=== PATIENT | male | born 1960 | race Caucasian/White ===

== ENCOUNTER → 2020-03-10 | Day surgery (SDC) | payer BC, OTHER ==
[~2020-03-10] MED LIST: Bupivacaine 0.5% 50 ML MDV ONE; Cephalexin 250 MG Cap PO ONE; Dexamethasone 4 MG/ML SDV ONE; Glycopyrrolate 0.2 MG/ML 5 ML MDV ONE; Hydrogen Peroxide 3% Top Soln 240 ML Bottle ONE; Lidocaine 1% with EPINEPHrine 1:100,000 50 ML MDV INFILT SCH; Lidocaine 1% with EPINEPHrine 1:100,000 50 ML MDV ONE; Neostigmine Methylsulfate 1 MG/ML 5 ML Syringe ONE; Ondansetron 4 MG/2 ML SDV ONE; Propofol 200 MG/20 ML SDV ONE; Rocuronium 50 MG/5 ML Vial ONE; Sodium Chloride 0.9% 10 ML ONE; Sodium Chloride 0.9% 10 ML Syringe FLUSH PRN; Succinylcholine 200 MG/10 ML MDV ONE; ceFAZolin 1 GM Vial ONE; ceFAZolin 2 GM in Premix Bag 1 BAG IV ONE; fentaNYL 100 MCG/2 ML SDV IVPUSH ONE; fentaNYL 250 MCG/5 ML SDV ONE
--- NOTE | 2020-03-10 20:19 | EDM.PDOC ---
ED HPI GENERAL MEDICAL PROBLEM - General Chief Complaint: Laceration Stated Complaint: CUT TO LT HAND Time Seen by Provider: 03/10/20 20:20 Source of Information: Reports: Patient History Limitations: Reports: No Limitations - History of Present Illness INITIAL COMMENTS - FREE TEXT/NARRATIVE: Patient presents for evaluation of a laceration to the palm of the left hand. He was using a small paring knife at home tonight and inadvertently cut the palm of the hand. The wound was pulsating blood and his home applied dressing and related clothing was easily saturated with blood. He has full use of fingers in terms of flexion and extension and can feel everything in his fingers. I was requested to see the patient urgently on arrival because of the extent of his bleeding. His last tetanus immunization was 4 years ago. He has a past history of coronary artery disease with several stents 4 years ago, long-term back pain with daily use of oxycodone. He had 2 epidural steroid injections in February of this year. He is also on medications for cholesterol. Onset: Today, Sudden Location: Reports: Upper Extremity, Left Quality: Reports: Stabbing, Throbbing Severity: Moderate Improves with: Reports: None Worsens with: Reports: None left palm Pain Score (Numeric/FACES): 2 - Related Data Allergies Allergy/AdvReac Type Severity Reaction Status Date / Time codeine Allergy Hives Verified 03/10/20 19:58 Home Meds: Home Meds Aspirin [Ecotrin EC] 81 mg PO DAILY 03/10/20 [History] Ezetimibe 1 tab PO DAILY 03/10/20 [History] Rosuvastatin [Crestor] 20 mg PO BEDTIME 03/10/20 [History] oxyCODONE HCl/Acetaminophen [Oxycodone-Acetaminophen 10-300] 1 tab PO TID PRN 03/10/20 [History] Past Medical History Cardiovascular History: Reports: High Cholesterol Endocrine/Metabolic History: Reports: Other (See Below) Other Endocrine/Metabolic History: testosterone replacement every 2 weeks - Past Surgical History Cardiovascular Surgical History: Reports: Coronary Artery Stent Neurological Surgical History: Reports: Lumbar Spine, Spinal Fusion Musculoskeletal Surgical History: Reports: Hip Replacement Social & Family History - Tobacco Use Smoking Status *Q: Never Smoker - Caffeine Use Caffeine Use: Reports: Coffee - Alcohol Use Days Per Week of Alcohol Use: 4 Number of Drinks Per Day: 2 Total Drinks Per Week: 8 - Recreational Drug Use Recreational Drug Use: No ED ROS GENERAL - Review of Systems Review Of Systems: Comprehensive ROS is negative, except as noted in HPI. ED EXAM, SKIN/RASH Exam: See Below Text/Narrative:: Anxious appearing adult male with bloodsoaked bandages. The bandage was unwrapped and there was a roughly 1.5 or 2 cm laceration in the center of the palm of the left hand that shows weakly pulsatile flow. The hand was bandaged again and the arm elevated but in a matter of time, the bandages were also soaked with blood. Exam Limited By: No Limitations General Appearance: Alert, Anxious, Moderate Distress Cardiovascular: Regular Rate, Rhythm, Tachycardia Extremities: Other (Left palm laceration as described.) Skin: Wound/Incision (See wound description in previous portion of note.) Course - Vital Signs Last Recorded V/S: Last Vital Signs Temp 35.5 C L 03/11/20 00:30 Pulse 76 03/11/20 00:30 Resp 16 03/11/20 00:30 BP 116/75 03/11/20 00:30 Pulse Ox 95 03/11/20 00:30 - Orders/Labs/Meds Orders: Active Orders 24 hr Category Date Time Status Lidocaine 1% w/EPINEPHrine [Xylocaine 1% with Med 03/10/20 20:00 Active EPINEPHrine 1:100,000] 5 ml INFILT ASDIRECTED Sodium Chloride 0.9% [Saline Flush] Med 03/10/20 20:18 Active 10 ml FLUSH ASDIRECTED PRN Saline Lock Insert [OM.PC] Routine Oth 03/10/20 20:18 Ordered Medication Orders Lidocaine/Epinephrine (Xylocaine 1% With Epinephrine 1:100,000) 5 ml INFILT ASDIRECTED STAS Last Admin: 03/11/20 01:07 Dose: Not Given Documented by: ABBE Sodium Chloride (Saline Flush) 10 ml FLUSH ASDIRECTED PRN PRN Reason: Keep Vein Open Meds: Medications Generic Name Dose Route Start Last Admin Trade Name Freq PRN Reason Stop Dose Admin Lidocaine/Epinephrine 5 ml 03/10/20 20:00 03/11/20 01:07 Xylocaine 1% With Epinephrine 1:100,000 INFILT Not Given ASDIRECTED SATS Sodium Chloride 10 ml 03/10/20 20:18 Saline Flush FLUSH ASDIRECTED PRN Keep Vein Open Discontinued Medications Generic Name Dose Route Start Last Admin Trade Name Ivett PRN Reason Stop Dose Admin Bupivacaine HCl Confirm 03/10/20 20:56 Marcaine 0.5% Administered 03/10/20 20:57 Dose 50 ml .ROUTE .STK-MED ONE Cefazolin Sodium Confirm 03/10/20 21:26 03/10/20 21:47 Ancef Administered 03/10/20 21:27 1 gm Dose Administration 1 gm .ROUTE .STK-MED ONE Cephalexin 500 mg 03/11/20 00:13 03/11/20 00:40 Keflex PO 03/11/20 00:14 500 mg ONETIME ONE Administration Cephalexin 500 mg 03/11/20 00:14 03/11/20 00:40 Keflex PO 03/11/20 00:15 500 mg ONETIME ONE Administration Dexamethasone Confirm 03/10/20 21:09 Dexamethasone Administered 03/10/20 21:10 Dose 4 mg .ROUTE .STK-MED ONE Fentanyl Confirm 03/10/20 21:08 Sublimaze Administered 03/10/20 21:09 Dose 250 mcg .ROUTE .STK-MED ONE Fentanyl 50 mcg 03/10/20 22:04 03/10/20 22:15 Sublimaze IVPUSH 03/10/20 22:05 50 mcg ONETIME ONE Administration Glycopyrrolate Confirm 03/10/20 21:09 Robinul Administered 03/10/20 21:10 Dose 1 mg .ROUTE .STK-MED ONE Hydrogen Peroxide Confirm 03/10/20 21:37 03/10/20 21:49 Proxacol 3% Administered 03/10/20 21:38 240 ml Dose Administration 240 ml .ROUTE .STK-MED ONE Cefazolin Sodium/Dextrose 2 gm 50 mls @ 100 mls/hr 03/10/20 20:18 03/10/20 20:36 / Premix IV 03/10/20 20:47 100 mls/hr ONETIME ONE Administration Sodium Chloride Confirm 03/10/20 21:26 Normal Saline Administered 03/10/20 21:27 Dose 10 mls @ as directed .ROUTE .STK-MED ONE Lidocaine/Epinephrine Confirm 03/10/20 20:56 Xylocaine 1% With Epinephrine 1:100,000 Administered 03/10/20 20:57 Dose 50 ml .ROUTE .STK-MED ONE Neostigmine Methylsulfate Confirm 03/10/20 21:09 Neostigmine Administered 03/10/20 21:10 Dose 5 mg .ROUTE .STK-MED ONE Ondansetron HCl Confirm 03/10/20 21:09 Zofran Administered 03/10/20 21:10 Dose 4 mg .ROUTE .STK-MED ONE Propofol Confirm 03/10/20 21:09 Diprivan 20 Ml Administered 03/10/20 21:10 Dose 200 mg .ROUTE .STK-MED ONE Rocuronium [place] Confirm 03/10/20 21:09 Zemuron Administered 03/10/20 21:10 Dose 50 mg .ROUTE .STK-MED ONE Succinylcholine Chloride Confirm 03/10/20 21:09 Quelicin Administered 03/10/20 21:10 Dose 200 mg .ROUTE .STK-MED ONE - Re-Assessments/Exams Free Text/Narrative Re-Assessment/Exam: 03/10/20 21:08 I reviewed his case with Dr. 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 Patient will be given cefazolin 2 g IV as a preoperative dose. Plan is to take him for IV sedation and local repair of the damaged vessel. There are no contraindications to surgery recognized at this time. Departure - Departure Time of Disposition: 01:11 Disposition: Home, Self-Care 01 Clinical Impression: Hand laceration Qualifiers: Encounter type: initial encounter Foreign body presence: without foreign body L aterality: left Qualified Code(s): S61.412A - Laceration without foreign body of left hand, initial encounter - Discharge Information Sepsis Event Note (ED) - Evaluation Sepsis Screening Result: No Definite Risk - Focused Exam Vital Signs: Vital Signs Temp Pulse Resp BP Pulse Ox 03/11/20 00:30 35.5 C L 76 16 116/75 95 03/11/20 00:00 35.5 C L 91 16 103/74 94 L 03/10/20 23:03 35.5 C L 80 16 98/60 93 L 03/10/20 23:02 64 16 100/65 91 L 03/10/20 22:25 35.6 C L 65 18 114/64 94 L 03/10/20 22:20 60 18 116/72 98 03/10/20 22:15 65 18 111/69 100 03/10/20 22:11 65 18 100/72 100 03/10/20 22:05 65 18 115/79 100 03/10/20 22:00 65 18 127/78 100 03/10/20 21:55 35.8 C L 65 18 127/78 100 03/10/20 20:52 35.8 C L 105 H 16 123/73 97 03/10/20 20:01 37.0 C 109 H 16 140/94 H 99 03/10/20 19:53 37.0 C 109 H 16 140/94 H 99 - My Orders Last 24 Hours: My Active Orders 03/10/20 20:00 Lidocaine 1% w/EPINEPHrine [Xylocaine 1% with EPINEPHrine 1:100,000] 5 ml INFILT ASDIRECTED 03/10/20 20:18 Sodium Chloride 0.9% [Saline Flush] 10 ml FLUSH ASDIRECTED PRN Saline Lock Insert [OM.PC] Routine - Assessment/Plan Last 24 Hours: My Active Orders 03/10/20 20:00 Lidocaine 1% w/EPINEPHrine [Xylocaine 1% with EPINEPHrine 1:100,000] 5 ml INFILT ASDIRECTED 03/10/20 20:18 Sodium Chloride 0.9% [Saline Flush] 10 ml FLUSH ASDIRECTED PRN Saline Lock Insert [OM.PC] Routine
--- NOTE | 2020-03-14 10:19 | OR ---
DATE OF PROCEDURE: 03/10/2020 SURGEON: Jarrod Pro MD PREOPERATIVE DIAGNOSIS: Puncture wound of left hand with brisk arterial bleeding. POSTOPERATIVE DIAGNOSIS: Puncture wound of left hand with transection of arterial superficial palmar arch. OPERATIVE PROCEDURE: Exploration and irrigation of puncture wound left hand with ligation of arterial superficial palmar arch ([id number]). ANESTHESIA: General. INDICATIONS FOR PROCEDURE: This is a 60-year-old visiting from [place], who suffered an accidental puncture wound to the palmar aspect of the left hand. This was just distal to the midportion of the thenar eminence. This was associated with brisk arterial bleeding when pressure is not being held and emergency room requested surgical exploration. Preoperatively, the patient had what appeared to be satisfactory blood supply to the hand and fingers and normal range of motion of the thumb and fingers, likewise no areas of cutaneous anesthesia could be identified. The plan is to proceed with exploration of the wound with probable ligation of arterial bleeding site. The patient preoperatively was given Ancef and states that he had a most recent tetanus immunization 4 years ago. Potential risks including bleeding, infection, possible ischemia to the hand following the ligation procedure, possibility that nerve branches associated with the artery may be ligated as well, resulting in some areas of anesthesia, were gone over and the patient wishes to proceed. DETAILS OF PROCEDURE: The patient was taken to the operating room, and after general endotracheal anesthesia was induced, left hand and forearm were prepped and draped. Taking down the dressing, the patient did have brisk arterial bleeding once again. The puncture wound, which was just distal to the midportion of the thenar eminence, was then extended proximally and distally for a total length of the stab wound and puncture wound being around 3 to 4 cm. The dissection was carried down. The patient could then be identified as having transected the arterial superficial palmar arch at that level. There was brisk arterial bleeding, both in the direction from the radial artery source, as well as back bleeding through the area of transection indicating satisfactory ulnar blood supply. Together this would amount to confirming adequate arterial blood supply would be maintained to the hand with ligation of these 2 ends, which at this point would be very difficult to anastomose. Nonetheless, the 2 ends were then each identified and carefully dissected free from surrounding soft tissues and suture-ligated with 4-0 Vicryl stitch. The wound at that point was irrigated with copious amounts of Ancef containing saline solution. The incision was then closed with some 3-0 and 4-0 Vicryl stitch deep and then a 5-0 Prolene skin stitch. Dressing was applied. The patient was taken to the recovery room in satisfactory condition. There were no other complications. Jarrod Pro MD /[id number] MTDD
== END ==
LOC: JP.ED 19:36 → JP.SDS 20:13
PROVIDERS: ATTEND Surgery
DX: S61.432A Puncture wound without foreign body of left hand, initial encounter (principal); R58 Hemorrhage, not elsewhere classified; E78.00 Pure hypercholesterolemia, unspecified; Z79.82 Long term (current) use of aspirin; Z79.899 Other long term (current) drug therapy; Z88.5 Allergy status to narcotic agent; W26.0XXA Contact with knife, initial encounter; Y92.009 Unspecified place in unspecified non-institutional (private) residence as the place of occurrence of the external cause
CPT/HCPCS: 37618; A9270; J0330; J0690; J1100; J2405; J2704; J2710; J3010; J3490; 99284